=== PATIENT | female | born 2000 | race Caucasian/White ===

== ENCOUNTER 2020-06-11 11:38 | Emergency (ER) | payer OTHER ==
[~2020-06-11] VITALS: Ht 157.5 cm; Wt 150.6 kg
[~2020-06-11 11:38] MED LIST: ADVAIRDISKUS; IBUPROFEN 400400 M2 PO; ZYRTEC
[2020-06-11 12:09] LABS: URINE BLOOD 3+ (Negative); URINE CLARITY CLOUDY; URINE COLOR YELLOW; URINE GLUCOSE-RANDOM NEGATIVE (Negative); URINE KETONES TRACE (Negative); URINE LEUKOCYTES-REFLEX 1+ (Negative); URINE NITRITE-REFLEX NEGATIVE (Negative); URINE PROTEIN 2+ (Negative); URINE SPECIFIC GRAVITY >= 1.030 (1.005-1.030); URINE UROBILINOGEN 0.2 E.U./dl (0.2-1.0)
[2020-06-11 12:12] LABS: ICTOTEST (BILI CONFIRMATORY) Negative (Negative); URINE BILIRUBIN 1+ (Negative)
[2020-06-11 12:16] LABS: SQUAMOUS 4-10 Moderate /LPF (0-3)
[2020-06-11 12:17] LABS: URINE RBC >20 Many /HPF (0-2); URINE WBC-REFLEX 0-5 Rare /HPF (0-5)
[2020-06-11 12:18] LABS: CASTS None Seen /LPF (None Seen); CRYSTALS None Seen /LPF (None Seen); MUCUS >6 Heavy strn/LPF (None Seen)
[2020-06-11] MEDS ORDERED: PYRIDIUM100 M1 PO (12:37)
[2020-06-11] MEDS ORDERED: KEFLEX500 M1 PO (12:37)
[2020-06-11 12:46] VITALS: BP 135/76
== END 2020-06-11 12:48 | disposition home or self-care (01) ==
LOC: M.ERS 11:38
PROVIDERS: Emergency Medicine Emergency Medical Services
DX: R30.0 Dysuria (principal); R10.30 Lower abdominal pain, unspecified; R31.9 Hematuria, unspecified; R35.0 Frequency of micturition; E66.01 Morbid (severe) obesity due to excess calories

== ENCOUNTER 2021-06-22 16:58 | Emergency (ER) | payer OTHER ==
[~2021-06-22] VITALS: Ht 157.5 cm; Wt 136.1 kg
[~2021-06-22 16:58] MED LIST changes: +KEFLEX500 M1 PO; +PYRIDIUM100 M1 PO
[2021-06-22 17:22] LABS: URINE BILIRUBIN NEGATIVE (Negative); URINE BLOOD NEGATIVE (Negative); URINE CLARITY CLEAR; URINE COLOR YELLOW; URINE GLUCOSE-RANDOM NEGATIVE (Negative); URINE KETONES NEGATIVE (Negative); URINE LEUKOCYTES-REFLEX NEGATIVE (Negative); URINE NITRITE-REFLEX NEGATIVE (Negative); URINE PROTEIN NEGATIVE (Negative); URINE SPECIFIC GRAVITY >= 1.030 (1.005-1.030); URINE UROBILINOGEN 0.2 E.U./dl (0.2-1.0)
[2021-06-22 18:17] LABS: ABSOLUTE BASOPHILS 0.1 thou/uL (0.0-0.2); ABSOLUTE EOSINOPHILS 0.1 thou/uL (0.0-0.7); ABSOLUTE LYMPHOCYTES 2.6 thou/uL (0.8-5.3); ABSOLUTE MONOCYTES 0.6 thou/uL (0.0-1.2); ABSOLUTE NEUTROPHILS 6.8 thou/uL (1.6-8.1); BASOPHILS 0.7 %; EOSINOPHILS 0.8 %; HEMATOCRIT 40.9 % (37.0-47.0); HEMOGLOBIN 13.8 gm/dL (12.0-15.0); MCH 31.1 pg (26.0-34.0); MCHC 33.7 g/dL (28.0-37.0); MCV 92.4 fL (80.0-100.0); MONOCYTES 5.4 %; MPV 8.5 fl. (7.2-11.1); NUCLEATED RBCS 0 /100WBC; PLATELET COUNT* 259 thou/uL (150-400); POLYS 67.1 %; RBC 4.43 mil/uL (4.20-5.00); RDW-CV 14.4 % (10.5-14.5); WBC 10.2 thou/uL (4.0-11.0)
[2021-06-22] MEDS ORDERED: ANUSOL-HC25 MG RECTAL (18:22)
[2021-06-22 18:33] VITALS: BP 142/79
== END 2021-06-22 18:34 | disposition home or self-care (01) ==
LOC: M.ERS 16:58
PROVIDERS: Nurse Practitioner Psychiatric/Mental Health
DX: K64.4 Residual hemorrhoidal skin tags (principal); E66.01 Morbid (severe) obesity due to excess calories; F17.210 Nicotine dependence, cigarettes, uncomplicated; Z68.43 Body mass index [BMI] 50.0-59.9, adult; Z88.1 Allergy status to other antibiotic agents

== ENCOUNTER 2021-08-09 12:34 | Emergency (ER) | payer OTHER ==
[~2021-08-09 12:34] MED LIST changes: +ANUSOL-HC25 MG RECTAL
== END 2021-08-09 13:52 | disposition left against medical advice (07) ==
LOC: M.ERS 12:34
DX: R50.9 Fever, unspecified (principal); Z53.21 Procedure and treatment not carried out due to patient leaving prior to being seen by health care provider

== ENCOUNTER 2021-08-11 08:28 | Emergency (ER) | payer OTHER ==
[~2021-08-11] VITALS: Ht 157.5 cm; Wt 136.1 kg
[2021-08-11] MEDS ORDERED: ZPAK PO (09:13)
[2021-08-11] MEDS ORDERED: PREDNISONE 20 M20 M1 PO (09:13)
[2021-08-11 09:21] LABS: INFLUENZA A ANTIGEN Negative (Negative); INFLUENZA B ANTIGEN Negative (Negative)
[2021-08-11 09:30] VITALS: BP 143/101
== END 2021-08-11 09:30 | disposition home or self-care (01) ==
LOC: M.ERS 08:28
PROVIDERS: Family Medicine
DX: J45.909 Unspecified asthma, uncomplicated (principal); Z20.822 Contact with and (suspected) exposure to COVID-19; R19.7 Diarrhea, unspecified; R11.2 Nausea with vomiting, unspecified; E66.01 Morbid (severe) obesity due to excess calories; Z68.43 Body mass index [BMI] 50.0-59.9, adult; Z88.1 Allergy status to other antibiotic agents